=== PATIENT | female | born 1995 | race African-American/Black ===

== ENCOUNTER 2017-12-14 12:56 | Emergency (ER) | payer MEDICAID, SELFPAY ==
--- NOTE | 2017-12-14 14:59 | EDPHYS ---
Physician Documentation [facility] Name: Beth Hernandez Age: 22 yrs Sex: Female : 1995 Arrival Date: 12/14/2017 Time: 12:57 Bed 11 Private MD: ED Physician Libby Powers HPI: 12/14 14:53 This 22 yrs old Black Female presents to ER via Ambulatory with complaints of Sore cp Throat, Drainage From Ear. 14:53 The patient presents with sore throat. The patient describes throat pain as constant. cp Onset: The symptoms/episode began/occurred 3 day(s) ago. Associated signs and symptoms: Pertinent positives: cough, earache, rhinorrhea, Sore throat Pertinent negatives cough, diarrhea, vomiting. 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 - Social history:: Smoking status: Patient/guardian denies using tobacco. ROS: 14:54 Eyes: Negative for injury, pain, redness, and discharge. cp 14:54 Constitutional: Negative for body aches, chills, fever, poor PO intake. 14:54 ENT: Positive for ear pain, rhinorrhea, sore throat. 14:54 Respiratory: Positive for cough, Negative for shortness of breath, wheezing. 14:54 Abdomen/GI: Negative for abdominal pain, vomiting, diarrhea, constipation. 14:54 Skin: Negative for cellulitis, rash. 14:54 Neuro: Negative for altered mental status, headache, weakness. 14:54 All other systems are negative. Exam: 14:56 Head/Face: Normocephalic, atraumatic. cp 14:56 Constitutional: The patient appears in no acute distress, alert, awake, non-toxic, well developed, well nourished. 14:56 Eyes: Periorbital structures: appear normal, Conjunctiva: normal, no exudate, no cp injection, Sclera: no appreciated abnormality, Lids and lashes: appear normal, bilaterally. 14:56 ENT: External ear(s): are unremarkable, Ear canal(s): cerumen impaction, that is cp moderate, occluding the left ear canal, Examination of the other ear shows no obvious abnormality, Nose: is normal, Mouth: Lips: moist, Oral mucosa: pink and intact, moist, Posterior pharynx: Airway: no evidence of obstruction, patent, Tonsils: no enlargement, no exudate, Uvula: midline, swelling, is not appreciated, erythema, that is mild, exudate, is not appreciated, Voice: is normal. 14:56 Neck: ROM/movement: is normal, is supple, without pain, no range of motions cp limitations, no meningismus, no nuchal rigidity, Lymph nodes: no appreciated lymphadenopathy. 14:56 Chest/axilla: Inspection: normal, Palpation: is normal, no crepitus, no tenderness. 14:56 Cardiovascular: Rate: normal, Rhythm: regular. 14:56 Respiratory: the patient does not display signs of respiratory distress, Respirations: normal, no use of accessory muscles, no retractions, no splinting, no tachypnea, labored breathing, is not present, Breath sounds: are clear throughout, no decreased breath sounds, no stridor, no wheezing. 14:56 Abdomen/GI: Exam negative for discomfort, distension, guarding, Inspection: abdomen appears normal. 14:56 Skin: cellulitis, is not appreciated. Vital Signs: 13:06 BP 115 / 67; Pulse 84; Resp 16; Temp 98.5; Pulse Ox 99% on R/A; Weight 81.65 kg; Height ch 5 ft. 6 in. (167.64 cm); Pain 7/10; 15:04 BP 117 / 64; Pulse 86; Resp 19; Pulse Ox 99% on R/A; aj 13:06 Body Mass Index 29.05 (81.65 kg, 167.64 cm) ch MDM: 14:45 Patient medically screened. 14:58 Data reviewed: vital signs, nurses notes, lab test result(s), and as a result, I will cp discharge patient. 12/14 13:07 Order name: Strep; Complete Time: 14:48 12/14 13:31 Order name: Throat Culture EDMS Administered Medications: No medications were administered Disposition: 12/14/17 14:58 Discharged to Home. Impression: Acute pharyngitis, Impacted cerumen, left ear. - Condition is Stable. - Discharge Instructions: Cerumen Impaction, Pharyngitis. - Prescriptions for Amoxicillin 875 mg Oral Tablet - take 1 tablet by ORAL route every 12 hours for 10 days; 20 tablet. - Work release form, Family Work Release, Medication Reconciliation Form, Thank You Letter, Antibiotic Education, Prescription Opioid Use form. - Follow up: Kate Ray MD; When: 1 - 2 days; Reason: Recheck today's complaints. - Problem is new. - Symptoms are unchanged. Addendum: 12/19/2017 19:53 Co-signature as Attending Physician, Libby Powers MD. m a2 Signatures: Dispatcher [employer] EDAngie Boykin RN RN ch Myers, Amanda, RN RN aj Page, Corey, PA PA cp Alzahri, MD NATALIE Souza ma2 Corrections: (The following items were deleted from the chart) 12/14 15:04 14:58 12/14/2017 14:58 Discharged to Home. Impression: Acute pharyngitis; Impacted aj cerumen, left ear. Condition is Stable. Forms are Family Work Release, Work release form, Medication Reconciliation Form, Thank You Letter, Antibiotic Education, Prescription Opioid Use. Follow up: Kate Ray; When: 1 - 2 days; Reason: Recheck today's complaints. Problem is new. Symptoms are unchanged. cp
--- NOTE | 2017-12-14 14:59 | ER ---
Nurse's Notes [facility] Name: Beth Hernandez Age: 22 yrs Sex: Female : 1995 Arrival Date: 12/14/2017 Time: 12:57 Bed 11 Private MD: Diagnosis: Acute pharyngitis;Impacted cerumen, left ear Presentation: 12/14 13:04 Presenting complaint: Patient states: sore throat, ear pain, and yellow runny drainage ch from malka ears for the past 3 days. I am coughing up green stuff too. Transition of care: patient was not received from another setting of care. Onset of symptoms was December 11, 2017. Initial Sepsis Screen: Does the patient meet any 2 criteria? No. Patient's initial sepsis screen is negative. Does the patient have a suspected source of infection? No. Patient's initial sepsis screen is negative. Care prior to arrival: None. 13:04 Method Of Arrival: Ambulatory 13:04 Acuity: MOLLY 4 ch Triage Assessment: 13:06 General: Appears in no apparent distress. comfortable, Behavior is calm, cooperative, ch appropriate for age. Pain: Complains of pain in throat Pain currently is 6 out of 10 on a pain scale. EENT: Reports nasal congestion nasal discharge pain when swallowing. Respiratory: Airway is patent Respiratory effort is even, unlabored. 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 - Social history:: Smoking status: Patient/guardian denies using tobacco. Screenin:57 Abuse screen: Denies threats or abuse. Denies injuries from another. Nutritional aj screening: No deficits noted. Tuberculosis screening: No symptoms or risk factors identified. Fall Risk None identified. Assessment: 14:55 General: Appears in no apparent distress. comfortable, Behavior is calm, cooperative, aj appropriate for age. Neuro: Level of Consciousness is awake, alert, obeys commands, Oriented to person, place, time, situation, Appropriate for age. Respiratory: Airway is patent Respiratory effort is even, unlabored, Respiratory pattern is regular, symmetrical, Breath sounds are clear bilaterally. EENT: Throat is clear Reports pain when swallowing. Derm: Skin is intact, is healthy with good turgor, Skin is pink, warm \T\ dry. normal. Vital Signs: 13:06 BP 115 / 67; Pulse 84; Resp 16; Temp 98.5; Pulse Ox 99% on R/A; Weight 81.65 kg; Height 5 ft. 6 in. (167.64 cm); Pain 7/10; 15:04 BP 117 / 64; Pulse 86; Resp 19; Pulse Ox 99% on R/A; aj 13:06 Body Mass Index 29.05 (81.65 kg, 167.64 cm) ED Course: 12:57 Patient arrived in ED. sb2 13:05 Triage completed. 13:06 Arm band placed on left wrist. 14:45 Binu Contreras PA is PHCP. cp 14:45 Libby Powers MD is Attending Physician. cp 14:55 Jada Olivas, RN is Primary Nurse. aj 14:57 Kate Ray MD is Referral Physician. cp 14:57 Patient has correct armband on for positive identification. aj 14:57 No provider procedures requiring assistance completed. Patient did not have IV access aj during this emergency room visit. Administered Medications: No medications were administered Outcome: 14:58 Discharge ordered by MD. cp 15:03 Discharged to home ambulatory, with family. aj 15:03 Condition: good 15:03 Discharge instructions given to patient, family, Instructed on discharge instructions, follow up and referral plans. medication usage, Demonstrated understanding of instructions, follow-up care, medications, Prescriptions given X 1. 15:04 Patient left the ED. aj Signatures: Angie Solitario, RN RN Jada Olivas RN RN Binu Noel PA PA Namita Mccall sb2
== END 2017-12-14 15:04 | disposition home or self-care (01) ==
LOC: ER 12:56
DX: J02.9 Acute pharyngitis, unspecified (principal); H61.22 Impacted cerumen, left ear
CPT/HCPCS: 87070; 87081; 99282

== ENCOUNTER 2017-12-30 19:28 | Emergency (ER) | payer MEDICAID, SELFPAY ==
[2017-12-30] MEDS ORDERED: IBUPROFEN 400 MG TAB ONE (19:58)
[2017-12-30] MEDS ORDERED: IBUPROFEN 200 MG TAB PO ONE (19:58)
[2017-12-30] MEDS ORDERED: ACETAMINOPHEN 325 MG TABLET ONE (19:58)
--- NOTE | 2017-12-30 21:58 | EDPHYS ---
Physician Documentation [facility] Name: Beth Hernandez Age: 22 yrs Sex: Female : 1995 Arrival Date: 12/30/2017 Time: 19:29 Bed 6 Private MD: ED Physician Binu Craig HPI: 12/30 21:52 This 22 yrs old Black Female presents to ER via Ambulatory with complaints of Fever, aamir Chills, Headache, Ear Pain. 21:52 The patient reports fever, that was measured at 101 degrees Fahrenheit. Onset: The aamir symptoms/episode began/occurred 1 day(s) ago. Modifying factors: there are no obvious modifying factors. Associated signs and symptoms: Pertinent positives: arthralgias, cough. Severity of symptoms: At their worst the symptoms were mild in the emergency department the symptoms are unchanged. The patient has not experienced similar symptoms in the past. 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 - Social history:: Smoking status: Patient/guardian denies using tobacco. ROS: 21:55 Eyes: Negative for injury, pain, redness, and discharge, Neck: Negative for injury, aamir pain, and swelling, Cardiovascular: Negative for chest pain, palpitations, and edema, Abdomen/GI: Negative for abdominal pain, nausea, vomiting, diarrhea, and constipation, Back: Negative for injury and pain, : Negative for injury, bleeding, discharge, and swelling, MS/Extremity: Negative for injury and deformity, Skin: Negative for injury, rash, and discoloration, Neuro: Negative for headache, weakness, numbness, tingling, and seizure, Psych: Negative for depression, anxiety, suicide ideation, homicidal ideation, and hallucinations, Allergy/Immunology: Negative for hives, rash, and allergies, Endocrine: Negative for neck swelling, polydipsia, polyuria, polyphagia, and marked weight changes, Hematologic/Lymphatic: Negative for swollen nodes, abnormal bleeding, and unusual bruising. 21:55 Constitutional: Positive for body aches, fever, malaise. 21:55 ENT: Positive for sore throat. 21:55 Respiratory: Positive for cough. Exam: 21:55 Constitutional: This is a well developed, well nourished patient who is awake, alert, aamir and in no acute distress. Head/Face: Normocephalic, atraumatic. Eyes: Pupils equal round and reactive to light, extra-ocular motions intact. Lids and lashes normal. Conjunctiva and sclera are non-icteric and not injected. Cornea within normal limits. Periorbital areas with no swelling, redness, or edema. ENT: Nares patent. No nasal discharge, no septal abnormalities noted. Tympanic membranes are normal and external auditory canals are clear. Oropharynx with no redness, swelling, or masses, exudates, or evidence of obstruction, uvula midline. Mucous membranes moist. Neck: Trachea midline, no thyromegaly or masses palpated, and no cervical lymphadenopathy. Supple, full range of motion without nuchal rigidity, or vertebral point tenderness. No Meningismus. Chest/axilla: Normal chest wall appearance and motion. Nontender with no deformity. No lesions are appreciated. Cardiovascular: Regular rate and rhythm with a normal S1 and S2. No gallops, murmurs, or rubs. Normal PMI, no JVD. No pulse deficits. Abdomen/GI: Soft, non-tender, with normal bowel sounds. No distension or tympany. No guarding or rebound. No evidence of tenderness throughout. Back: No spinal tenderness. No costovertebral tenderness. Full range of motion. Skin: Warm, dry with normal turgor. Normal color with no rashes, no lesions, and no evidence of cellulitis. MS/ Extremity: Pulses equal, no cyanosis. Neurovascular intact. Full, normal range of motion. Neuro: Awake and alert, GCS 15, oriented to person, place, time, and situation. Cranial nerves II-XII grossly intact. Motor strength 5/5 in all extremities. Sensory grossly intact. Cerebellar exam normal. Normal gait. Psych: Awake, alert, with orientation to person, place and time. Behavior, mood, and affect are within normal limits. 21:55 Respiratory: mild respiratory distress is noted, Respirations: normal, Breath sounds: rhonchi, that are mild, are scattered. Vital Signs: 20:00 BP 114 / 72; Pulse 120; Resp 23; Temp 101.2; Pulse Ox 99% on R/A; Weight 72.57 kg; aj Height 5 ft. 6 in. (167.64 cm); 21:30 BP 96 / 56; Pulse 101; Resp 18; Temp 98.2(O); Pulse Ox 98% on R/A; tl2 22:00 BP 96 / 60; Pulse 91; Resp 18; Pulse Ox 100% on R/A; tl2 20:00 Body Mass Index 25.82 (72.57 kg, 167.64 cm) MDM: 21:33 Patient medically screened. [facility] 21:55 Data reviewed: vital signs, nurses notes, lab test result(s), urinalysis. [facility] 12/30 21:52 Order name: Urine Culture [facility] 12/30 22:19 Order name: Urine Dipstick--Ancillary (enter results) 12/30 22:19 Order name: Urine --Ancillary (enter results) 12/30 21:52 Order name: Urine Dipstick-Ancillary (obtain specimen); Complete Time: 22:22 [facility] 12/30 21:52 Order name: Urine Test (obtain specimen); Complete Time: 22:22 [facility] Administered Medications: 19:59 Drug: Tylenol 650 mg Route: PO; aj 22:11 Follow up: Response: No adverse reaction; Temperature is decreased tl2 19:59 Drug: Motrin 600 mg Route: PO; aj 22:11 Follow up: Response: No adverse reaction; Temperature is decreased tl2 22:22 Drug: Tamiflu 75 mg Route: PO; tl2 22:36 Follow up: Response: No adverse reaction tl2 22:22 Drug: Augmentin 875 mg Route: PO; tl2 22:36 Follow up: Response: No adverse reaction tl2 22:36 Drug: Rocephin (cefTRIAXone) 1 grams Route: IM; Site: right gluteus; tl2 22:37 Follow up: Response: No adverse reaction; Medication administered at discharge. tl2 Disposition: 12/30/17 21:57 Discharged to Home. Impression: Fever, unspecified, Malaise and fatigue, Cough. - Condition is Stable. - Discharge Instructions: Acute Bronchitis, Cool Mist Vaporizers, Acute Bronchitis, [id number], Cough, Adult, [id number], Cough, Adult. - Prescriptions for Augmentin 875- 125 mg Oral Tablet - take 1 tablet by ORAL route every 12 hours for 7 days; 14 tablet. Tamiflu 75 mg Oral Capsule - take 1 tablet by ORAL route every 12 hours for 5 days; 10 tablet. - Medication Reconciliation Form, Thank You Letter, Antibiotic Education, Prescription Opioid Use, Work release form form. - Follow up: Private Physician; When: 2 - 3 days; Reason: Recheck today's complaints, Continuance of care, Re-evaluation by your physician. - Problem is new. - Symptoms have improved. Signatures: Dispatcher [employer] EDJada Clements RN RN Binu Yancey MD MD cha Knox, Taylor, RN RN tl2 Corrections: (The following items were deleted from the chart) 22:37 21:57 12/30/2017 21:57 Discharged to Home. Impression: Fever, unspecified; Malaise and tl2 fatigue; Cough. Condition is Stable. Forms are Medication Reconciliation Form, Thank You Letter, Antibiotic Education, Prescription Opioid Use. Follow up: Private Physician; When: 2 - 3 days; Reason: Recheck today's complaints, Continuance of care, Re-evaluation by your physician. Problem is new. Symptoms have improved. aamir
--- NOTE | 2017-12-30 21:58 | ER ---
Nurse's Notes [facility] Name: Beth Hernandez Age: 22 yrs Sex: Female : 1995 Arrival Date: 12/30/2017 Time: 19:29 Bed 6 Private MD: Diagnosis: Fever, unspecified;Malaise and fatigue;Cough Presentation: 12/30 19:59 Presenting complaint: Patient states: Nasal congestion, chills, headache, bilateral ear aj pain since today at 1200. Patient denies taking any OTC medications for discomfort. Transition of care: patient was not received from another setting of care. Onset of symptoms was December 30, 2017. Care prior to arrival: None. 19:59 Method Of Arrival: Ambulatory 19:59 Acuity: MOLLY 4 aj 21:33 Initial Sepsis Screen: Does the patient meet any 2 criteria? HR > 90 bpm. Does the tl2 patient have a suspected source of infection? No. Patient's initial sepsis screen is negative. Triage Assessment: 20:00 Headache History: The patient has had previous headaches and this one is similar to aj previous episodes. General: Appears in no apparent distress. ill, Behavior is calm, cooperative, appropriate for age. Pain: Complains of pain in face, right ear and left ear. EENT: Reports pain in left ear and right ear. Neuro: Level of Consciousness is awake, alert, obeys commands, Oriented to person, place, time, situation, Appropriate for age Moves all extremities. Gait is steady, Speech is normal, Facial symmetry appears normal, Reports headache. Respiratory: Airway is patent Respiratory effort is even, unlabored, Respiratory pattern is regular, symmetrical. Derm: Skin is intact, is healthy with good turgor, Skin is pink, warm \T\ dry. normal. 20:00 General: Pt states she feels better since arriving to ED. tl2 21:33 Pain: Pain. 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 - Social history:: Smoking status: Patient/guardian denies using tobacco. Screenin:30 Abuse screen: Denies threats or abuse. Nutritional screening: No deficits noted. tl2 Tuberculosis screening: No symptoms or risk factors identified. Fall Risk None identified. Assessment: 21:30 General: Appears in no apparent distress. comfortable, Behavior is calm, cooperative, tl2 appropriate for age. General: Reports chills for fever for. Pain: Complains of pain in left ear and right ear, throat Pain does not radiate. Neuro: Level of Consciousness is awake, alert, obeys commands, Oriented to person, place, time, situation. Cardiovascular: Denies chest pain. Respiratory: Reports cough that is Airway is patent Respiratory effort is even, unlabored, Respiratory pattern is regular, symmetrical. GI: No signs and/or symptoms were reported involving the gastrointestinal system. : No signs and/or symptoms were reported regarding the genitourinary system. Derm: Skin is pink, warm \T\ dry. 22:00 Reassessment: MD reviewed UA, new med ordered, see OCT. tl2 22:33 Reassessment: Patient appears in no apparent distress at this time. Patient and/or tl2 family updated on plan of care and expected duration. Pain level reassessed. Patient is alert, oriented x 3, equal unlabored respirations, skin warm/dry/pink. Pt verbalized understanding of discharge instructions, need for follow up and prescription usage. Vital Signs: 20:00 BP 114 / 72; Pulse 120; Resp 23; Temp 101.2; Pulse Ox 99% on R/A; Weight 72.57 kg; aj Height 5 ft. 6 in. (167.64 cm); 21:30 BP 96 / 56; Pulse 101; Resp 18; Temp 98.2(O); Pulse Ox 98% on R/A; tl2 22:00 BP 96 / 60; Pulse 91; Resp 18; Pulse Ox 100% on R/A; tl2 20:00 Body Mass Index 25.82 (72.57 kg, 167.64 cm) aj ED Course: 19:29 Patient arrived in ED. am2 20:00 Triage completed. aj 20:00 Arm band placed on left wrist. Patient placed in waiting room, Patient notified of wait aj time. Antipyretics given from triage as ordered by an ER provider. 21:24 Srea Hinkle, RN is Primary Nurse. tl2 21:30 Patient has correct armband on for positive identification. Bed in low position. Call tl2 light in reach. Side rails up X 1. Adult w/ patient. 21:32 Binu Craig MD is Attending Physician. [facility] 22:00 No provider procedures requiring assistance completed. Patient did not have IV access tl2 during this emergency room visit. Administered Medications: 19:59 Drug: Tylenol 650 mg Route: PO; aj 22:11 Follow up: Response: No adverse reaction; Temperature is decreased tl2 19:59 Drug: Motrin 600 mg Route: PO; aj 22:11 Follow up: Response: No adverse reaction; Temperature is decreased tl2 22:22 Drug: Tamiflu 75 mg Route: PO; tl2 22:36 Follow up: Response: No adverse reaction tl2 22:22 Drug: Augmentin 875 mg Route: PO; tl2 22:36 Follow up: Response: No adverse reaction tl2 22:36 Drug: Rocephin (cefTRIAXone) 1 grams Route: IM; Site: right gluteus; tl2 22:37 Follow up: Response: No adverse reaction; Medication administered at discharge. tl2 Outcome: 21:57 Discharge ordered by . [facility] 22:00 Discharged to home ambulatory, with family. tl2 22:00 Condition: stable 22:00 Discharge instructions given to patient, family, Instructed on discharge instructions, follow up and referral plans. medication usage, Demonstrated understanding of instructions, follow-up care, medications, Prescriptions given X 2. 22:37 Patient left the ED. tl2 Signatures: Jada Olivas RN RN aj Anderson, Corey, MD MD cha Knox, Taylor, RN RN 2 Jada Shah
[2017-12-30] MEDS ORDERED: AMOX/K CLAV 875 MG TAB ONE (22:11)
[2017-12-30] MEDS ORDERED: OSELTAMIVIR 75 MG CAP ONE (22:11)
[2017-12-30] MEDS ORDERED: LIDOCAINE 1% 20 ML MDV ONE (22:28)
[2017-12-30] MEDS ORDERED: CEFTRIAXONE 1000 MG/VIAL ONE (22:28)
[2017-12-30 23:23] LABS: Urine Blood 3+ (NEG); Urine Glucose NEGATIVE (NEG); Urine Protein 2+ (NEG); Urine Specific Gravity 1.015 (1.005-1.030)
== END 2017-12-30 22:37 | disposition home or self-care (01) ==
LOC: ER 19:28
DX: R05 Cough (principal); R53.81 Other malaise; R53.83 Other fatigue; Z88.1 Allergy status to other antibiotic agents; Z88.5 Allergy status to narcotic agent; Z91.048 Other nonmedicinal substance allergy status
CPT/HCPCS: 81003; 81025; 87086; 87088; 96372; 99283

== ENCOUNTER 2018-02-17 17:27 | Emergency (ER) | payer OTHER, SELFPAY ==
[2018-02-17 18:58] LABS: Absolute Lymphocytes (CBC) 2.7 K/uL (0.7-4.9); Absolute Monocytes 0.6 K/uL (0.1-1.3); Basophils % 0.5 % (0-1.3); Eosinophils % 5.8 % (0-4.4); Hematocrit 33.3 % (36.0-45.0); Lymphocytes % 34.5 % (15.3-44.8); MCV 74.3 fL (80-100); MPV 8.5 fL (7.6-11.3); Monocytes % 7.4 % (3.3-12.3); RBC Red Blood Cell Count 4.48 M/uL (3.86-4.86)
[2018-02-17 19:14] LABS: BUN Blood Urea Nitrogen 7 mg/dL (7-18); Bicarbonate 26 mmol/L (21-32); Glucose Level 94 mg/dL (74-106); Potassium 3.8 mmol/L (3.5-5.1); Sodium Level 139 mmol/L (136-145)
[2018-02-17 19:16] LABS: HCG, Quantitative < 1 mIU/mL (1-3)
[2018-02-17 19:32] LABS: Urine Blood 2+ (NEG); Urine Glucose NEGATIVE (NEG); Urine Protein TRACE (NEG); Urine Specific Gravity 1.025 (1.005-1.030)
--- NOTE | 2018-02-17 19:32 | EDPHYS ---
Physician Documentation [facility] Name: Beth Hernandez Age: 23 yrs Sex: Female : 1995 Arrival Date: 02/17/2018 Time: 17:31 Bed 20 Private MD: Unknown, Unknown ED Physician Akhil Ayala HPI: 02/17 18:34 This 23 yrs old Black Female presents to ER via Ambulatory with complaints of Vaginal jr8 Bleeding, + Preg <12wks. 18:34 The patient presents to the emergency department with vaginal bleeding, that is light. jr8 The estimated gestational age is 7 weeks. course: care: private OB physician. Associated signs and symptoms: The patient has no apparent associated signs or symptoms. The patient has experienced a previous episode. The patient has not recently seen a physician. Stated that she had vaginal bleeding and cramping that started today. History of miscarry in past . 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 - Social history:: Smoking status: Patient/guardian denies using tobacco. - Ebola Screening: : Patient negative for fever greater than or equal to 101.5 degrees Fahrenheit, and additional compatible Ebola Virus Disease symptoms Patient denies exposure to infectious person Patient denies travel to an Ebola-affected area in the 21 days before illness onset No symptoms or risks identified at this time. ROS: 18:34 Eyes: Negative for injury, pain, redness, and discharge, ENT: Negative for injury, jr8 pain, and discharge, Neck: Negative for injury, pain, and swelling, Cardiovascular: Negative for chest pain, palpitations, and edema, Respiratory: Negative for shortness of breath, cough, wheezing, and pleuritic chest pain, Abdomen/GI: Negative for abdominal pain, nausea, vomiting, diarrhea, and constipation, Back: Negative for injury and pain, MS/Extremity: Negative for injury and deformity, Skin: Negative for injury, rash, and discoloration, Neuro: Negative for headache, weakness, numbness, tingling, and seizure. 18:34 : Positive for vaginal bleeding. Exam: 18:34 Cardiovascular: Regular rate and rhythm with a normal S1 and S2. No gallops, murmurs, jr8 or rubs. Normal PMI, no JVD. No pulse deficits. Respiratory: Lungs have equal breath sounds bilaterally, clear to auscultation and percussion. No rales, rhonchi or wheezes noted. No increased work of breathing, no retractions or nasal flaring. Abdomen/GI: Soft, non-tender, with normal bowel sounds. No distension or tympany. No guarding or rebound. No evidence of tenderness throughout. Back: No spinal tenderness. No costovertebral tenderness. Full range of motion. Skin: Warm, dry with normal turgor. Normal color with no rashes, no lesions, and no evidence of cellulitis. MS/ Extremity: Pulses equal, no cyanosis. Neurovascular intact. Full, normal range of motion. Neuro: Awake and alert, GCS 15, oriented to person, place, time, and situation. Cranial nerves II-XII grossly intact. Motor strength 5/5 in all extremities. Sensory grossly intact. Cerebellar exam normal. Normal gait. Vital Signs: 17:33 BP 115 / 69; Pulse 81; Resp 19; Temp 98.2; Pulse Ox 100% ; Weight 72.57 kg; Height 5 sg ft. 6 in. (167.64 cm); Pain 5/10; 19:32 BP 112 / 71; Pulse 84; Resp 16; Temp 98.2; Pulse Ox 100% ; Pain 2/10; tl1 17:33 Body Mass Index 25.82 (72.57 kg, 167.64 cm) sg MDM: 17:56 Patient medically screened. jr8 19:21 Data reviewed: vital signs, nurses notes, lab test result(s), and as a result, I will jr8 discharge patient. Data interpreted: Pulse oximetry: on room air is 100 %. Interpretation: normal. Counseling: I had a detailed discussion with the patient and/or guardian regarding: the historical points, exam findings, and any diagnostic results supporting the discharge/admit diagnosis, lab results, the need for outpatient follow up, a family practitioner, to return to the emergency department if symptoms worsen or persist or if there are any questions or concerns that arise at home. 19:28 ED course: Negative HCG and urine. Explained to patient that she is just having regular [facility] menstrual cycle. The home test that she had was probably false positive. Patient is happy about this and ready to go home . 02/17 18:10 Order name: Quantitative Hcg; Complete Time: 19:21 [facility] 02/17 18:10 Order name: Abo/rh Typing [facility] 02/17 18:10 Order name: Basic Metabolic Panel; Complete Time: 19:21 [facility] 02/17 18:10 Order name: CBC with Diff; Complete Time: 19:11 [facility] 02/17 19:00 Order name: Urine Dipstick--Ancillary (enter results); Complete Time: 19:34 02/17 19:00 Order name: Urine --Ancillary (enter results); Complete Time: 19:34 02/17 18:10 Order name: Urine Test (obtain specimen); Complete Time: 18:55 [facility] 02/17 18:10 Order name: IV Saline Lock; Complete Time: 18:55 [facility] 02/17 18:10 Order name: Labs collected and sent; Complete Time: 18:55 [facility] 02/17 18:10 Order name: NPO; Complete Time: 18:34 [facility] 02/17 18:10 Order name: Urine Dipstick-Ancillary (obtain specimen); Complete Time: 18:55 Administered Medications: No medications were administered Point of Care Testing: Urine : 19:32 hCG Reading: Negative; tl1 Disposition: 02/18 07:10 Co-signature as Attending Physician, Akhil Ayala MD. rn Disposition: 02/17/18 19:30 Discharged to Home. Impression: Dysmenorrhea, unspecified. - Condition is Stable. - Discharge Instructions: Dysmenorrhea. - Medication Reconciliation Form, Thank You Letter, Antibiotic Education, Prescription Opioid Use form. - Follow up: Private Physician; When: As needed; Reason: Recheck today's complaints, Continuance of care, Re-evaluation by your physician. - Problem is new. - Symptoms have improved. Signatures: Dispatcher [employer] EDMS Matthew Sandoval RN RN Akhil Ayala MD MD rn Roszak, Josh, PA PA 8 Lasagna, Katarzyna, RN RN tl1 Corrections: (The following items were deleted from the chart) 02/17 19:35 19:30 02/17/2018 19:30 Discharged to Home. Impression: Dysmenorrhea, unspecified. tl1 Condition is Stable. Forms are Medication Reconciliation Form, Thank You Letter, Antibiotic Education, Prescription Opioid Use. Follow up: Private Physician; When: As needed; Reason: Recheck today's complaints, Continuance of care, Re-evaluation by your physician. Problem is new. Symptoms have improved. jr8
--- NOTE | 2018-02-17 19:32 | ER ---
Nurse's Notes [facility] Name: Beth Hernandez Age: 23 yrs Sex: Female : 1995 Arrival Date: 02/17/2018 Time: 17:31 Bed 20 Private MD: Unknown, Unknown Diagnosis: Dysmenorrhea, unspecified Presentation: 02/17 17:34 Presenting complaint: Patient states: BLQ abd pain and vaginal bleeding, pt reports sg positive x2 started bleeding today. Transition of care: patient was not received from another setting of care. Onset of symptoms was February 17, 2018. Risk Assessment: Do you want to hurt yourself or someone else? Patient reports no desire to harm self or others. Initial Sepsis Screen: Does the patient meet any 2 criteria? No. Patient's initial sepsis screen is negative. Does the patient have a suspected source of infection? No. Patient's initial sepsis screen is negative. Care prior to arrival: None. 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 - Social history:: Smoking status: Patient/guardian denies using tobacco. - Ebola Screening: : Patient negative for fever greater than or equal to 101.5 degrees Fahrenheit, and additional compatible Ebola Virus Disease symptoms Patient denies exposure to infectious person Patient denies travel to an Ebola-affected area in the 21 days before illness onset No symptoms or risks identified at this time. Screenin:41 Abuse screen: Denies threats or abuse. Denies injuries from another. Nutritional aj1 screening: No deficits noted. Tuberculosis screening: No symptoms or risk factors identified. 19:31 Fall Risk tl1 Assessment: 17:41 Obstetrical Assessment: Patient reports vaginal bleeding. General: Appears in no aj1 apparent distress. comfortable, Behavior is calm, cooperative, appropriate for age. Pain: Complains of pain in low back area, right lower quadrant and left lower quadrant Pain currently is 5 out of 10 on a pain scale. Quality of pain is described as sharp, Pain began 1 day ago. Is intermittent. Neuro: Level of Consciousness is awake, alert, obeys commands, Oriented to person, place, time, situation, Speech is normal, Facial symmetry appears normal. Cardiovascular: Patient's skin is warm and dry. Respiratory: Airway is patent Respiratory effort is even, unlabored, Respiratory pattern is regular, symmetrical. GI: No signs and/or symptoms were reported involving the gastrointestinal system. : Reports vaginal bleeding that is moderate flow. EENT: No signs and/or symptoms were reported regarding the EENT system. Derm: No signs and/or symptoms reported regarding the dermatologic system. Skin is normal. Musculoskeletal: No signs and/or symptoms reported regarding the musculoskeletal system. Circulation, motion, and sensation intact. 18:55 Reassessment: Patient appears in no apparent distress at this time. No changes from aj1 previously documented assessment. Patient and/or family updated on plan of care and expected duration. Pain level reassessed. Patient is alert, oriented x 3, equal unlabored respirations, skin warm/dry/pink. 19:30 Reassessment: Patient is alert, oriented x 3, equal unlabored respirations, skin tl1 warm/dry/pink. Patient states feeling better. Vital Signs: 17:33 BP 115 / 69; Pulse 81; Resp 19; Temp 98.2; Pulse Ox 100% ; Weight 72.57 kg; Height 5 sg ft. 6 in. (167.64 cm); Pain 5/10; 19:32 BP 112 / 71; Pulse 84; Resp 16; Temp 98.2; Pulse Ox 100% ; Pain 2/10; tl1 17:33 Body Mass Index 25.82 (72.57 kg, 167.64 cm) sg Vitals: 19:31 Heart Tones not applicable. tl1 ED Course: 17:31 Patient arrived in ED. sg 17:33 Unknown, Unknown is Private Physician. sg 17:33 Arm band placed on. sg 17:35 Triage completed. sg 17:41 Shannon Watson, RN is Primary Nurse. aj1 17:41 Patient has correct armband on for positive identification. Bed in low position. Call aj1 light in reach. Side rails up X 1. 17:41 No provider procedures requiring assistance completed. aj1 17:56 Manuel Noland PA is PHCP. jr8 17:56 Akhil Ayala MD is Attending Physician. jr8 18:55 Initial lab(s) drawn, by me, sent to lab. Inserted saline lock: 20 gauge in right aj1 antecubital area, using aseptic technique. Blood collected. 19:30 IV discontinued, intact, bleeding controlled, No redness/swelling at site. Pressure tl1 dressing applied. Administered Medications: No medications were administered Point of Care Testing: Urine : 19:32 hCG Reading: Negative; tl1 Outcome: 19:30 Discharge ordered by . jr8 19:31 Discharged to home ambulatory, with family. tl1 19:31 Condition: good 19:31 Discharge instructions given to patient, family, Instructed on discharge instructions, follow up and referral plans. Demonstrated understanding of instructions, follow-up care. 19:35 Patient left the ED. tl1 Signatures: Shannon Watson RN RN aj1 Matthew Sandoval RN RN Manuel Noland PA PA jr8 Katarzyna Riojas RN RN tl1
== END 2018-02-17 19:35 | disposition home or self-care (01) ==
LOC: ER 17:27
DX: N94.6 Dysmenorrhea, unspecified (principal); Z88.6 Allergy status to analgesic agent; Z88.8 Allergy status to other drugs, medicaments and biological substances
CPT/HCPCS: 36415; 80048; 81003; 81025; 84702; 85025; 86900; 86901; 99284

== ENCOUNTER 2018-06-30 12:40 | Emergency (ER) | payer MEDICAID, OTHER ==
--- NOTE | 2018-06-30 14:22 | EDPHYS ---
Physician Documentation [facility] Name: Beth Hernandez Age: 23 yrs Sex: Female : 1995 Arrival Date: 06/30/2018 Time: 12:45 Bed 25 Private MD: ED Physician Akhil Ayala HPI: 06/30 13:31 This 23 yrs old Black Female presents to ER via Ambulatory with complaints of Flu kav Symptoms. 13:31 Onset: The symptoms/episode began/occurred acutely. Associated signs and symptoms: kav Pertinent positives: myalgias, runny nose. Modifying factors: The patient symptoms are alleviated by nothing, the patient symptoms are aggravated by nothing. The patient has not experienced similar symptoms in the past. The patient has not recently seen a physician. . 13:35 The patient reports fever, with an emergency department temperature of 98.8 degrees kav Fahrenheit. Modifying factors: unaware of sick contact. Associated signs and symptoms: Pertinent positives: chills, myalgias, runny nose. Severity of symptoms: At their worst the symptoms were moderate just prior to arrival. 13:36 Patient is 15 weeks . 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 - Social history:: Smoking status: Patient/guardian denies using tobacco. - Ebola Screening: : Patient negative for fever greater than or equal to 101.5 degrees Fahrenheit, and additional compatible Ebola Virus Disease symptoms Patient denies exposure to infectious person Patient denies travel to an Ebola-affected area in the 21 days before illness onset No symptoms or risks identified at this time. - Family history:: not pertinent. - Hospitalizations: : No recent hospitalization is reported. ROS: 13:38 Eyes: Negative for injury, pain, redness, and discharge, ENT: Negative for injury, kav pain, and discharge, Neck: Negative for injury, pain, and swelling, Cardiovascular: Negative for chest pain, palpitations, and edema, Respiratory: Negative for shortness of breath, cough, wheezing, and pleuritic chest pain, Abdomen/GI: Negative for abdominal pain, nausea, vomiting, diarrhea, and constipation, Back: Negative for injury and pain, : Negative for injury, bleeding, discharge, and swelling, MS/Extremity: Negative for injury and deformity, Skin: Negative for injury, rash, and discoloration, Neuro: Negative for headache, weakness, numbness, tingling, and seizure, Psych: Negative for depression, anxiety, suicide ideation, homicidal ideation, and hallucinations, Allergy/Immunology: Negative for hives, rash, and allergies, Endocrine: Negative for neck swelling, polydipsia, polyuria, polyphagia, and marked weight changes, Hematologic/Lymphatic: Negative for swollen nodes, abnormal bleeding, and unusual bruising. 13:38 Constitutional: Positive for body aches, chills, fever, Negative for poor PO intake, weight loss. Exam: 13:38 Head/Face: Normocephalic, atraumatic. Eyes: Pupils equal round and reactive to light, kav extra-ocular motions intact. Lids and lashes normal. Conjunctiva and sclera are non-icteric and not injected. Cornea within normal limits. Periorbital areas with no swelling, redness, or edema. ENT: Nares patent. No nasal discharge, no septal abnormalities noted. Tympanic membranes are normal and external auditory canals are clear. Oropharynx with no redness, swelling, or masses, exudates, or evidence of obstruction, uvula midline. Mucous membranes moist. Neck: Trachea midline, no thyromegaly or masses palpated, and no cervical lymphadenopathy. Supple, full range of motion without nuchal rigidity, or vertebral point tenderness. No Meningismus. Chest/axilla: Normal chest wall appearance and motion. Nontender with no deformity. No lesions are appreciated. Cardiovascular: Regular rate and rhythm with a normal S1 and S2. No gallops, murmurs, or rubs. Normal PMI, no JVD. No pulse deficits. Respiratory: Lungs have equal breath sounds bilaterally, clear to auscultation and percussion. No rales, rhonchi or wheezes noted. No increased work of breathing, no retractions or nasal flaring. Abdomen/GI: Soft, non-tender, with normal bowel sounds. No distension or tympany. No guarding or rebound. No evidence of tenderness throughout. Back: No spinal tenderness. No costovertebral tenderness. Full range of motion. Skin: Warm, dry with normal turgor. Normal color with no rashes, no lesions, and no evidence of cellulitis. MS/ Extremity: Pulses equal, no cyanosis. Neurovascular intact. Full, normal range of motion. Neuro: Awake and alert, GCS 15, oriented to person, place, time, and situation. Cranial nerves II-XII grossly intact. Motor strength 5/5 in all extremities. Sensory grossly intact. Cerebellar exam normal. Normal gait. Psych: Awake, alert, with orientation to person, place and time. Behavior, mood, and affect are within normal limits. 13:38 Constitutional: The patient appears in no acute distress, alert, awake, in obvious distress, obviously ill, uncomfortable. Vital Signs: 12:54 BP 112 / 66; Pulse 107; Resp 20; Temp 98.8; Pulse Ox 100% on R/A; Weight 76.66 kg; aj Height 5 ft. 6 in. (167.64 cm); 13:34 BP 126 / 58; Pulse 106; Resp 18; Temp 99.4(O); Pulse Ox 100% ; tl3 14:54 BP 137 / 69; Pulse 105; Resp 18; Pulse Ox 97% on R/A; tl3 12:54 Body Mass Index 27.28 (76.66 kg, 167.64 cm) aj MDM: 13:11 Medical screening is not applicable. ka 13:38 Differential diagnosis: viral Infection, influnza. Data reviewed: vital signs, nurses kav notes. 14:19 Data reviewed: lab test result(s), Flu: negative. ka 14:19 ED course: reviewed lab results with patient -negative influenza test. patient requests ka to be treated for influenza owing to surrounded by sick contacts with influenza. advised patient that Oseltamivir may be used safely during . 06/30 13:14 Order name: Influenza Screen (a \T\ B); Complete Time: 14:14 kav Administered Medications: 14:57 Drug: Tylenol 1000 mg Route: PO; tl3 14:57 Follow up: Response: Medication administered at discharge. tl3 Disposition: 17:25 Co-signature as Attending Physician, Akhil Ayala MD. rn Disposition: 06/30/18 14:22 Discharged to Home. Impression: Influenza due to other identified influenza virus. - Condition is Stable. - Discharge Instructions: Influenza, Adult, [id number]. - Prescriptions for Tamiflu 75 mg Oral Capsule - take 1 tablet by ORAL route every 12 hours for 5 days; 5 tablet. - Medication Reconciliation Form, Thank You Letter form. - Follow up: Private Physician; When: 2 - 3 days; Reason: Recheck today's complaints, Continuance of care, Re-evaluation by your physician. - Problem is new. - Symptoms are unchanged. Signatures: Dispatcher [employer] EDJada Clements RN Yarelis Gomez, INTEGRATED LOGISTICS PROGRAMS DIRECTOR INTEGRATED LOGISTICS PROGRAMS DIRECTOR Akhil Salas MD MD rn Lowrey, Tammy, RN RN tl3 Corrections: (The following items were deleted from the chart) 14:57 14:22 06/30/2018 14:22 Discharged to Home. Impression: Influenza due to other tl3 identified influenza virus. Condition is Stable. Forms are Medication Reconciliation Form, Thank You Letter, Antibiotic Education, Prescription Opioid Use. Follow up: Private Physician; When: 2 - 3 days; Reason: Recheck today's complaints, Continuance of care, Re-evaluation by your physician. Problem is new. Symptoms are unchanged. tim
--- NOTE | 2018-06-30 14:22 | ER ---
Nurse's Notes [facility] Name: Beth Hernandez Age: 23 yrs Sex: Female : 1995 Arrival Date: 06/30/2018 Time: 12:45 Bed 25 Private MD: Diagnosis: Influenza due to other identified influenza virus Presentation: 06/30 12:53 Presenting complaint: Patient states: Flu like symptoms since last night, 15 weeks aj . Transition of care: patient was not received from another setting of care. Onset of symptoms was June 29, 2018. Risk Assessment: Do you want to hurt yourself or someone else? Patient reports no desire to harm self or others. Initial Sepsis Screen: Does the patient meet any 2 criteria? No. Patient's initial sepsis screen is negative. Does the patient have a suspected source of infection? No. Patient's initial sepsis screen is negative. Care prior to arrival: None. 12:53 Method Of Arrival: Ambulatory 12:53 Acuity: MOLLY 4 aj Triage Assessment: 12:53 General: Appears in no apparent distress. comfortable, Behavior is calm, cooperative, aj appropriate for age. Pain: Denies pain. EENT: Reports nasal congestion nasal discharge. Neuro: Level of Consciousness is awake, alert, obeys commands, Oriented to person, place, time, situation, Appropriate for age. Respiratory: Airway is patent Respiratory effort is even, unlabored, Respiratory pattern is regular, symmetrical. Derm: Skin is intact, is healthy with good turgor, Skin is pink, warm \T\ dry. normal. 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 - Social history:: Smoking status: Patient/guardian denies using tobacco. - Ebola Screening: : Patient negative for fever greater than or equal to 101.5 degrees Fahrenheit, and additional compatible Ebola Virus Disease symptoms Patient denies exposure to infectious person Patient denies travel to an Ebola-affected area in the 21 days before illness onset No symptoms or risks identified at this time. - Family history:: not pertinent. - Hospitalizations: : No recent hospitalization is reported. Screenin:34 Abuse screen: Denies threats or abuse. Nutritional screening: No deficits noted. tl3 Tuberculosis screening: No symptoms or risk factors identified. Fall Risk None identified. Assessment: 13:34 Reassessment: pt reports flu like s/s started yesterday, low grade temp, body aches, tl3 runny nose and cough. General: Appears ill, slender, well groomed, well developed, well nourished, Behavior is calm, cooperative, appropriate for age. Pain: Complains of pain in generalized body aches. Neuro: Level of Consciousness is awake, alert, obeys commands, Oriented to person, place, time, situation, Appropriate for age. Cardiovascular: Patient's skin is warm and dry. Respiratory: Airway is patent Respiratory effort is even, unlabored, Respiratory pattern is regular, symmetrical, Breath sounds are coarse bilaterally. GI: No signs and/or symptoms were reported involving the gastrointestinal system. : No signs and/or symptoms were reported regarding the genitourinary system. EENT: Nares are clear with drainage noted. Derm: No signs and/or symptoms reported regarding the dermatologic system. 14:54 Reassessment: Patient appears in no apparent distress at this time. No changes from tl3 previously documented assessment. Patient and/or family updated on plan of care and expected duration. Pain level reassessed. Patient is alert, oriented x 3, equal unlabored respirations, skin warm/dry/pink. Vital Signs: 12:54 BP 112 / 66; Pulse 107; Resp 20; Temp 98.8; Pulse Ox 100% on R/A; Weight 76.66 kg; aj Height 5 ft. 6 in. (167.64 cm); 13:34 BP 126 / 58; Pulse 106; Resp 18; Temp 99.4(O); Pulse Ox 100% ; tl3 14:54 BP 137 / 69; Pulse 105; Resp 18; Pulse Ox 97% on R/A; tl3 12:54 Body Mass Index 27.28 (76.66 kg, 167.64 cm) aj ED Course: 12:45 Patient arrived in ED. mr 12:53 Triage completed. aj 12:54 Arm band placed on left wrist. Patient placed in waiting room, Patient notified of wait aj time. 13:01 Sigrid Hale, RN is Primary Nurse. tl3 13:11 [facility] tim 13:11 Akhil Ayala MD is Attending Physician. ka 13:34 Patient has correct armband on for positive identification. Bed in low position. Call tl3 light in reach. Side rails up X 1. Pulse ox on. NIBP on. 13:34 No provider procedures requiring assistance completed. Patient did not have IV access tl3 during this emergency room visit. Administered Medications: 14:57 Drug: Tylenol 1000 mg Route: PO; tl3 14:57 Follow up: Response: Medication administered at discharge. tl3 Outcome: 14:22 Discharge ordered by . kav 14:54 Discharged to home ambulatory. tl3 14:54 Condition: stable 14:54 Discharge instructions given to patient, Instructed on discharge instructions, follow up and referral plans. medication usage, stressed fluid intake, good handwashing and staying away from other people until fever free for 24 hours 14:57 Patient left the ED. tl3 Signatures: Jada Olivas RN RN Yarelis Garcia FNP FNP kav Heather Parra mr Sigrid Hale, RN RN tl3 Corrections: (The following items were deleted from the chart) 12:54 12:53 Presenting complaint: Patient states: Flu like symptoms since last night aj aj
[2018-06-30] MEDS ORDERED: ACETAMINOPHEN 500 MG TAB ONE (14:54)
== END 2018-06-30 14:57 | disposition home or self-care (01) ==
LOC: ER 12:40
DX: J10.1 Influenza due to other identified influenza virus with other respiratory manifestations (principal); Z3A.15 15 weeks gestation of pregnancy; Z88.1 Allergy status to other antibiotic agents; Z88.5 Allergy status to narcotic agent; Z91.048 Other nonmedicinal substance allergy status
CPT/HCPCS: 87804; 99283

== ENCOUNTER 2018-10-23 19:24 | Emergency (ER) | payer MEDICAID ==
--- NOTE | 2018-10-23 21:00 | EDPHYS ---
Physician Documentation [facility] Name: Beth Hernandez Age: 23 yrs Sex: Female : 1995 Arrival Date: 10/23/2018 Time: 19:24 Bed 10 Private MD: ED Physician Arik Burgess HPI: 10/23 20:57 This 23 yrs old Black Female presents to ER via Ambulatory with complaints of Flu jr8 Symptoms. 20:58 Flu symptoms that were sudden onset since this past Wednesday . Severity of symptoms: At jr8 their worst the symptoms were mild in the emergency department the symptoms are unchanged. The patient has not experienced similar symptoms in the past. The patient has not recently seen a physician. 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 - Social history:: Smoking status: Patient/guardian denies using tobacco. - Ebola Screening: : No symptoms or risks identified at this time. ROS: 20:58 Neck: Negative for injury, pain, and swelling, Cardiovascular: Negative for chest pain, jr8 palpitations, and edema, Abdomen/GI: Negative for abdominal pain, nausea, vomiting, diarrhea, and constipation, Back: Negative for injury and pain, MS/Extremity: Negative for injury and deformity, Skin: Negative for injury, rash, and discoloration, Neuro: Negative for headache, weakness, numbness, tingling, and seizure. 20:58 Constitutional: Positive for body aches, chills. 20:58 ENT: Positive for rhinorrhea, sinus congestion, sore throat. 20:58 Respiratory: Positive for cough, Negative for dyspnea on exertion, shortness of breath, sputum production, wheezing. Exam: 20:58 Eyes: Pupils equal round and reactive to light, extra-ocular motions intact. Lids and jr8 lashes normal. Conjunctiva and sclera are non-icteric and not injected. Cornea within normal limits. Periorbital areas with no swelling, redness, or edema. ENT: Nares patent. No nasal discharge, no septal abnormalities noted. Tympanic membranes are normal and external auditory canals are clear. Oropharynx with no redness, swelling, or masses, exudates, or evidence of obstruction, uvula midline. Mucous membranes moist. Neck: Trachea midline, no thyromegaly or masses palpated, and no cervical lymphadenopathy. Supple, full range of motion without nuchal rigidity, or vertebral point tenderness. No Meningismus. Cardiovascular: Regular rate and rhythm with a normal S1 and S2. No gallops, murmurs, or rubs. Normal PMI, no JVD. No pulse deficits. Respiratory: Lungs have equal breath sounds bilaterally, clear to auscultation and percussion. No rales, rhonchi or wheezes noted. No increased work of breathing, no retractions or nasal flaring. Abdomen/GI: Soft, non-tender, with normal bowel sounds. No distension or tympany. No guarding or rebound. No evidence of tenderness throughout. Back: No spinal tenderness. No costovertebral tenderness. Full range of motion. Skin: Warm, dry with normal turgor. Normal color with no rashes, no lesions, and no evidence of cellulitis. MS/ Extremity: Pulses equal, no cyanosis. Neurovascular intact. Full, normal range of motion. Neuro: Awake and alert, GCS 15, oriented to person, place, time, and situation. Cranial nerves II-XII grossly intact. Motor strength 5/5 in all extremities. Sensory grossly intact. Cerebellar exam normal. Normal gait. Vital Signs: 19:47 BP 100 / 61; Pulse 129; Resp 20; Temp 98.2(TE); Pulse Ox 100% on R/A; Weight 78.02 kg ak1 (R); Height 5 ft. 6 in. (167.64 cm) (R); Pain 2/10; 21:14 Pulse 122; Resp 18; Temp 100.5(O); Pulse Ox 99% ; tl2 19:47 Body Mass Index 27.76 (78.02 kg, 167.64 cm) ak1 MDM: 20:29 Patient medically screened. jr8 20:58 Data reviewed: vital signs, nurses notes, lab test result(s), Flu: negative and as a jr8 result, I will discharge patient. Data interpreted: Pulse oximetry: on room air is 100 %. Interpretation: normal. Counseling: I had a detailed discussion with the patient and/or guardian regarding: the historical points, exam findings, and any diagnostic results supporting the discharge/admit diagnosis, lab results, the need for outpatient follow up, a family practitioner, to return to the emergency department if symptoms worsen or persist or if there are any questions or concerns that arise at home. 10/23 19:49 Order name: Flu; Complete Time: 20:29 [facility] 10/23 19:49 Order name: Strep; Complete Time: 20:29 ak 10/23 20:30 Order name: Throat Culture EDMS Administered Medications: 21:14 Drug: Tylenol 1000 mg Route: PO; tl2 21:16 Follow up: Response: No adverse reaction; Medication administered at discharge. tl2 21:14 Drug: Tamiflu 75 mg Route: PO; tl2 21:16 Follow up: Response: No adverse reaction; Medication administered at discharge. tl2 Disposition: 10/24 06:07 Co-signature as Attending Physician, Arik Burgess MD I agree with the assessment and tw4 plan of care. Disposition: 10/23/18 20:59 Discharged to Home. Impression: Viral infection, unspecified. - Condition is Stable. - Discharge Instructions: Viral Respiratory Infection. - Prescriptions for Tamiflu 75 mg Oral Capsule - take 1 capsule by ORAL route every 12 hours for 5 days; 10 capsule. - Medication Reconciliation Form, Thank You Letter, Antibiotic Education, Prescription Opioid Use form. - Follow up: Private Physician; When: 2 - 3 days; Reason: Recheck today's complaints, Continuance of care, Re-evaluation by your physician. - Problem is new. - Symptoms have improved. Signatures: Dispatcher [employer] EDMS Manuel Noland PA PA jr8 Chelsea Hahn RN RN ak1 Sera Hinkle RN RN tl2 Arik Burgess MD MD tw4 Corrections: (The following items were deleted from the chart) 10/23 21:17 20:59 10/23/2018 20:59 Discharged to Home. Impression: Viral infection, unspecified. tl2 Condition is Stable. Forms are Medication Reconciliation Form, Thank You Letter, Antibiotic Education, Prescription Opioid Use. Follow up: Private Physician; When: 2 - 3 days; Reason: Recheck today's complaints, Continuance of care, Re-evaluation by your physician. Problem is new. Symptoms have improved. jr8
--- NOTE | 2018-10-23 21:00 | ER ---
Nurse's Notes [facility] Name: Beth Hernandez Age: 23 yrs Sex: Female : 1995 Arrival Date: 10/23/2018 Time: 19:24 Bed 10 Private MD: Diagnosis: Viral infection, unspecified Presentation: 10/23 19:47 Presenting complaint: Patient states: COUGH, CONGESTION, FEVER, THROAT PAIN SINCE ak1 WEDNESDAY. 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 Transition of care: patient was not received from another setting of care. Onset of symptoms was October 21, 2018. Care prior to arrival: None. 19:47 Method Of Arrival: Ambulatory ak1 19:47 Acuity: MOLLY 4 ak1 21:16 Risk Assessment: Do you want to hurt yourself or someone else? Patient reports no tl2 desire to harm self or others. Initial Sepsis Screen: Does the patient meet any 2 criteria? HR > 90 bpm. Does the patient have a suspected source of infection? No. Patient's initial sepsis screen is negative. Triage Assessment: 19:47 General: Appears in no apparent distress. Behavior is calm, cooperative. 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 - Social history:: Smoking status: Patient/guardian denies using tobacco. - Ebola Screening: : No symptoms or risks identified at this time. Screenin:48 Abuse screen: Denies threats or abuse. Nutritional screening: No deficits noted. bb Tuberculosis screening: No symptoms or risk factors identified. Fall Risk None identified. Assessment: 20:45 General: Appears in no apparent distress. Behavior is calm, cooperative. bb 20:48 Pain: Denies pain. Neuro: Level of Consciousness is awake, alert, obeys commands, bb Oriented to person, place, time, situation. Cardiovascular: No deficits noted. Respiratory: Respiratory effort is even, unlabored, Respiratory pattern is regular. GI: No signs and/or symptoms were reported involving the gastrointestinal system. : Reports she is . Derm: Skin is pink, warm \T\ dry. Musculoskeletal: Circulation, motion, and sensation intact. 21:12 Reassessment: Patient appears in no apparent distress at this time. Patient and/or tl2 family updated on plan of care and expected duration. Pain level reassessed. Patient is alert, oriented x 3, equal unlabored respirations, skin warm/dry/pink. Discharge vitals discussed with SOCORRO Jackson. Ordered to give 1000 mg Tylenol and 75 mg Tamiflu before discharge. Okay to discharge after medications given. Pt verbalized understanding of discharge instructions, need for follow up and prescription usage. Vital Signs: 19:47 BP 100 / 61; Pulse 129; Resp 20; Temp 98.2(TE); Pulse Ox 100% on R/A; Weight 78.02 kg ak1 (R); Height 5 ft. 6 in. (167.64 cm) (R); Pain 2/10; 21:14 Pulse 122; Resp 18; Temp 100.5(O); Pulse Ox 99% ; tl2 19:47 Body Mass Index 27.76 (78.02 kg, 167.64 cm) ak1 ED Course: 19:24 Patient arrived in ED. am2 19:47 Triage completed. ak1 19:47 Arm band placed on Patient placed in waiting room. ak1 20:28 Manuel Noland PA is [facility]. jr8 20:28 Arik Burgess MD is Attending Physician. jr8 20:48 Patient has correct armband on for positive identification. Bed in low position. Call bb light in reach. Adult w/ patient. 21:15 No provider procedures requiring assistance completed. Patient did not have IV access tl2 during this emergency room visit. Administered Medications: 21:14 Drug: Tylenol 1000 mg Route: PO; tl2 21:16 Follow up: Response: No adverse reaction; Medication administered at discharge. tl2 21:14 Drug: Tamiflu 75 mg Route: PO; tl2 21:16 Follow up: Response: No adverse reaction; Medication administered at discharge. tl2 Outcome: 20:59 Discharge ordered by . jr8 21:15 Discharged to home ambulatory, with family. tl2 21:15 Condition: stable 21:15 Discharge instructions given to patient, family, Instructed on discharge instructions, follow up and referral plans. medication usage, Demonstrated understanding of instructions, follow-up care, medications, Prescriptions given X 1. 21:17 Patient left the ED. tl2 Signatures: Kylie Grande RN RN Manuel Luna PA PA jr8 Chelsea Hahn RN RN ak1 Sera Hinkle RN RN tl2 Jada Shah
[2018-10-23] MEDS ORDERED: OSELTAMIVIR 75 MG CAP ONE (21:21)
[2018-10-23] MEDS ORDERED: ACETAMINOPHEN 500 MG TAB ONE (21:21)
== END 2018-10-23 21:17 | disposition home or self-care (01) ==
LOC: ER 19:24
DX: B34.9 Viral infection, unspecified (principal); Z3A.31 31 weeks gestation of pregnancy; Z88.1 Allergy status to other antibiotic agents; Z88.5 Allergy status to narcotic agent; Z91.048 Other nonmedicinal substance allergy status
CPT/HCPCS: 87070; 87081; 87804; 99283

== ENCOUNTER 2019-03-13 07:33 | Emergency (ER) | payer MEDICAID, SELFPAY ==
--- OUTSIDE RECORDS SUMMARY | 2019-03-13 07:39 | XMS REPORT ---
:1995 [facility] Address [address] [place] [address] [address] [place] [address] Care Team Providers Name Role Phone Unavailable Unavailable Unavailable Problems This patient has no known problems. Allergies, Adverse Reactions, Alerts This patient has no known allergies or adverse reactions. Medications This patient has no known medications.
[2019-03-13 08:24] LABS: Absolute Lymphocytes (CBC) 1.7 K/uL (0.7-4.9); Basophils % 0.3 % (0-1.3); Hematocrit 33.6 % (36.0-45.0); Lymphocytes % 28.3 % (15.3-44.8); MPV 9.2 fL (7.6-11.3); RBC Red Blood Cell Count 4.74 M/uL (3.86-4.86)
[2019-03-13 08:38] LABS: BUN Blood Urea Nitrogen 7 mg/dL (7-18); Bicarbonate 24 mmol/L (21-32); Glucose Level 92 mg/dL (74-106); Potassium 3.6 mmol/L (3.5-5.1); Sodium Level 143 mmol/L (136-145)
--- NOTE | 2019-03-13 09:43 | RAD REPORT ---
EXAM DESCRIPTION: CT - Soft Tissue Neck Wo Contr - 03/13/2019 8:49 am CLINICAL HISTORY: Right tonsil swelling on exam, fever, sore throat TECHNIQUE: Axial 3 millimeter thick images of the neck soft tissues performed extending from skullba se to lung apex. No IV contrast administered. All CT scans are performed using dose optimization technique as appropriate and may include automated exposure control or mA/KV adjustment according to patient size. FINDINGS: Intracranial portion the examination is grossly normal. No globe or orbital content abnorm ality. Mastoid air cells and paranasal sinuses are clear. Parotid, submandibular and thyroid gland tissue show no suspicious findings. Adenoid hypertrophy is present at 15 mm, prominent for the patient's age. Left tonsil is within limit s of normal. Right tonsil is enlarged and more heterogeneous than the left tonsil. There is some hete rogeneity but no clearly defined tonsillar abscess. Tonsillar abscess assessment is limited in the ab sence of contrast. The adjacent parapharyngeal fat is within limits. No tongue base abnormality. Epig lottis and laryngeal structures are normal. No mass or suspicious lymphadenopathy in the neck soft tissues. IMPRESSION: Enlarged and slightly heterogeneous right tonsil. Appearances consistent with a tonsillitis. No gross evidence for a tonsillar abscess; however, absenc e of contrast limits this assessment. Adenoid hypertrophy.
[2019-03-13] MEDS ORDERED: PEN G BENZ LA 1.2MU/2ML SYRINGE IM ONE (10:27)
--- NOTE | 2019-03-13 11:04 | ER ---
Nurse's Notes [facility] Name: Beth Hernandez Age: 24 yrs Sex: Female : 1995 Arrival Date: 03/13/2019 Time: 07:37 Bed 13 Private MD: None, None Diagnosis: Streptococcal tonsillitis Presentation: 03/13 07:52 Presenting complaint: Patient states: Sore throat, cough and fever since . ph Transition of care: patient was not received from another setting of care. Onset of symptoms was March 13, 2019. Risk Assessment: Do you want to hurt yourself or someone else? Patient reports no desire to harm self or others. Initial Sepsis Screen: Does the patient meet any 2 criteria? No. Patient's initial sepsis screen is negative. Does the patient have a suspected source of infection? No. Patient's initial sepsis screen is negative. Care prior to arrival: None. 07:52 Method Of Arrival: Ambulatory ph 07:52 Acuity: MOLLY 4 ph Historical: - Allergies: 07:55 Hydrocodone-Acetaminophen; ph 07:55 Iodine; ph 07:55 Zithromax; ph - Home Meds: 07:55 Iron CR Oral [Active]; ph - PMHx: 07:55 None; ph - PSHx: 07:55 ; ph - Immunization history:: Adult Immunizations unknown. - Social history:: Smoking status: Patient/guardian denies using tobacco. - Ebola Screening: : No symptoms or risks identified at this time. Screenin:57 Abuse screen: Denies threats or abuse. Denies injuries from another. Nutritional ph screening: No deficits noted. Tuberculosis screening: No symptoms or risk factors identified. Fall Risk None identified. Assessment: 08:00 General: Appears in no apparent distress. comfortable, slender, well groomed, Behavior ph is calm, cooperative, appropriate for age, Reports fever for 2-3 days. Pain: Complains of pain in throat and ears. Neuro: Level of Consciousness is awake, alert, obeys commands, Oriented to person, place, time, situation. Cardiovascular: Capillary refill < 3 seconds in bilateral fingers Patient's skin is warm and dry. Respiratory: Reports cough that is Airway is patent Respiratory effort is even, unlabored, Respiratory pattern is regular, symmetrical, Breath sounds are clear bilaterally. GI: No signs and/or symptoms were reported involving the gastrointestinal system. Patient currently denies abdominal pain, diarrhea, nausea, vomiting. EENT: Throat is reddened has enlarged tonsils bilaterally Reports pain when swallowing. Derm: Skin is intact, Skin is pink, warm \\T\\ dry. Musculoskeletal: Circulation, motion, and sensation intact. Range of motion: intact in all extremities. 09:00 Reassessment: Patient appears in no apparent distress at this time. Patient and/or ph family updated on plan of care and expected duration. Pain level reassessed. Patient is alert, oriented x 3, equal unlabored respirations, skin warm/dry/pink. 10:15 Reassessment: Patient appears in no apparent distress at this time. Patient and/or ph family updated on plan of care and expected duration. Pain level reassessed. Patient is alert, oriented x 3, equal unlabored respirations, skin warm/dry/pink. 11:39 Reassessment: Patient appears in no apparent distress at this time. Patient and/or ph family updated on plan of care and expected duration. Pain level reassessed. Pt asleep w/ equal and unlabored respirations, awaiting transfer to [facility]. 12:00 Reassessment: Patient appears in no apparent distress at this time. Pt requesting to be ph d/c, states, " I really don't think I need to be transferred for this. Can I just go home w/ antibiotics?" ERP notified of pt request. Vital Signs: 07:53 BP 120 / 86; Pulse 108; Resp 18; Temp 99.1; Pulse Ox 100% on R/A; Weight 73.48 kg; ph Height 5 ft. 6 in. (167.64 cm); Pain 10/10; 11:38 BP 116 / 72; Pulse 91; Resp 16; Temp 98.9(O); Pulse Ox 99% on R/A; ph 07:53 Body Mass Index 26.15 (73.48 kg, 167.64 cm) ph ED Course: 07:37 Patient arrived in ED. dp 07:38 None, None is Private Physician. dp 07:39 Darryl Rich MD is Attending Physician. kdr 07:52 Lala Eastman RN is Primary Nurse. ph 07:53 Triage completed. ph 07:55 Arm band placed on Patient placed in an exam room. ph 08:52 Soft Tissue Neck Wo Contr In Process Unspecified. EDMS 08:57 Patient has correct armband on for positive identification. Call light in reach. Side ph rails up X 1. Door closed. Noise minimized. Warm blanket given. Head of bed elevated. 10:00 Inserted saline lock: 22 gauge in right antecubital area, using aseptic technique. ph 11:40 No provider procedures requiring assistance completed. ph 11:56 Kate Ray MD is Referral Physician. kdr Administered Medications: 11:09 Drug: Clindamycin 900 mg Route: IVPB; Infused Over: 30 mins; Site: right antecubital; aj 11:40 Follow up: Response: No adverse reaction; IV Status: Completed infusion ph 11:09 Drug: Decadron - Dexamethasone 10 mg Route: IVP; Site: right antecubital; aj 12:22 Follow up: Response: No adverse reaction ph 11:15 Not Given (Other Intervention Used): Bicillin L-A 1.2 million units IM once ph Outcome: 11:03 ER care complete, transfer ordered by . kdr 11:57 Discharge ordered by . kdr 12:23 Patient left the ED. ph Signatures: Dispatcher [employer] EDMS Jada Olivas RN RN aj Rittger, Kevin, MD MD kdr Lala Eastman RN RN ph Carlitos Davis
--- NOTE | 2019-03-13 11:04 | EDPHYS ---
Physician Documentation [facility] Name: Beth Hernandez Age: 24 yrs Sex: Female : 1995 Arrival Date: 03/13/2019 Time: 07:37 Bed 13 Private MD: None, None ED Physician Darryl Rich HPI: 03/13 08:07 This 24 yrs old Black Female presents to ER via Ambulatory with complaints of Sore kdr Throat, Cough, Ear Pain. 08:07 The patient presents with sore throat, dysphagia, of solids, of liquids, of both solids kdr and liquids. The patient describes throat pain as constant, raw, scratchy, the patient is unable to open their mouth due to pain. Onset: The symptoms/episode began/occurred gradually, last week. Severity of symptoms: At their worst the symptoms were mild, moderate, just prior to arrival, in the emergency department the symptoms are unchanged. Modifying factors: The symptoms are alleviated by nothing, the symptoms are aggravated by fluids, foods, swallowing, Patient's oral intake status: good. Associated signs and symptoms: Pertinent positives: chills, earache, fever, Sore throat. The patient has not experienced similar symptoms in the past. The patient has not recently seen a physician. Historical: - Allergies: 07:55 Hydrocodone-Acetaminophen; ph 07:55 Iodine; ph 07:55 Zithromax; ph - Home Meds: 07:55 Iron CR Oral [Active]; ph - PMHx: 07:55 None; ph - PSHx: 07:55 ; ph - Immunization history:: Adult Immunizations unknown. - Social history:: Smoking status: Patient/guardian denies using tobacco. - Ebola Screening: : No symptoms or risks identified at this time. ROS: 08:07 Constitutional: Negative for chills, and weight loss - she has had fever to 103 Eyes: kdr Negative for injury, pain, redness, and discharge, Neck: Negative for injury, pain, and swelling, Cardiovascular: Negative for chest pain, palpitations, and edema, Respiratory: Negative for shortness of breath, cough, wheezing, and pleuritic chest pain, Abdomen/GI: Negative for abdominal pain, nausea, vomiting, diarrhea, and constipation, Back: Negative for injury and pain, : Negative for injury, bleeding, discharge, and swelling, MS/Extremity: Negative for injury and deformity, Skin: Negative for injury, rash, and discoloration, Neuro: Negative for headache, weakness, numbness, tingling, and seizure activity. 08:07 ENT: Positive for ear pain, sore throat, Negative for drainage from ear(s), nasal discharge, sinus congestion, dental pain, difficulty handling secretions. Exam: 08:07 Constitutional: This is a well developed, well nourished patient who is awake, alert, kdr and in no acute distress. Head/Face: Normocephalic, atraumatic. Eyes: Pupils equal round and reactive to light, extra-ocular motions intact. Lids and lashes normal. Conjunctiva and sclera are non-icteric and not injected. Cornea within normal limits. Periorbital areas with no swelling, redness, or edema. Neck: Trachea midline, no thyromegaly or masses palpated, and no cervical lymphadenopathy. Supple, full range of motion without nuchal rigidity, or vertebral point tenderness. No Meningismus. Chest/axilla: Normal chest wall appearance and motion. Nontender with no deformity. No lesions are appreciated. Cardiovascular: Regular rate and rhythm with a normal S1 and S2. No gallops, murmurs, or rubs. Normal PMI, no JVD. No pulse deficits. Respiratory: Lungs have equal breath sounds bilaterally, clear to auscultation and percussion. No rales, rhonchi or wheezes noted. No increased work of breathing, no retractions or nasal flaring. Abdomen/GI: Soft, non-tender, with normal bowel sounds. No distension or tympany. No guarding or rebound. No evidence of tenderness throughout. Back: No spinal tenderness. No costovertebral tenderness. Full range of motion. Skin: Warm, dry with normal turgor. Normal color with no rashes, no lesions, and no evidence of cellulitis. MS/ Extremity: Pulses equal, no cyanosis. Neurovascular intact. Full, normal range of motion. Neuro: Awake and alert, GCS 15, oriented to person, place, time, and situation. Cranial nerves II-XII grossly intact. Motor strength 5/5 in all extremities. Sensory grossly intact. Cerebellar exam normal. Normal gait. Psych: Awake, alert, with orientation to person, place and time. Behavior, mood, and affect are within normal limits. 08:07 ENT: TM's: TM's largely obscured by cerumen. What can be seen appears normal, Mouth: Lips: normal, Oral mucosa: normal, Gums: normal with healthy appearance, drooling, is not appreciated, Mild trismus, Posterior pharynx: Airway: normal, Tonsils: bilaterally enlarged, May be slightly more enlarged on the right, Uvula: midline, Voice: is normal. Vital Signs: 07:53 BP 120 / 86; Pulse 108; Resp 18; Temp 99.1; Pulse Ox 100% on R/A; Weight 73.48 kg; ph Height 5 ft. 6 in. (167.64 cm); Pain 10/10; 11:38 BP 116 / 72; Pulse 91; Resp 16; Temp 98.9(O); Pulse Ox 99% on R/A; ph 07:53 Body Mass Index 26.15 (73.48 kg, 167.64 cm) ph MDM: 08:07 Data reviewed: vital signs, nurses notes, lab test result(s), radiologic studies. kdr Counseling: I had a detailed discussion with the patient and/or guardian regarding: the historical points, exam findings, and any diagnostic results supporting the discharge/admit diagnosis, lab results, radiology results, the need for outpatient follow up. 11:03 Patient medically screened. kdr 11:32 ED course: Attempted to contact ENT - left message for consult call. Did not receive a kdr call back so initiated transfer since the patient had trismus and was claiming difficulty with swallowing solids and fluids. D/w transfer center at [facility] - they will see in ED there. 11:53 ED course: The patient states that she is feeling better and does not want to be kdr transferred. She still appears to have mild trismus but her airway is intact and she believes that she will be able to swallow solids and fluids. I advised her to either return to the ED or follow-up with ENT if she worsens in any way.. 03/13 07:56 Order name: CBC with Diff; Complete Time: 11:26 kdr 03/13 07:56 Order name: Chem 7; Complete Time: 08:55 kdr 03/13 07:56 Order name: Strep; Complete Time: 08:55 kdr 03/13 08:37 Order name: Throat Culture EDWY 03/13 11:17 Order name: Manual Differential; Complete Time: 11:26 [facility] 03/13 08:49 Order name: Soft Tissue Neck Wo Contr; Complete Time: 10:01 EDWY Administered Medications: 11:09 Drug: Clindamycin 900 mg Route: IVPB; Infused Over: 30 mins; Site: right antecubital; aj 11:40 Follow up: Response: No adverse reaction; IV Status: Completed infusion ph 11:09 Drug: Decadron - Dexamethasone 10 mg Route: IVP; Site: right antecubital; aj 12:22 Follow up: Response: No adverse reaction ph 11:15 Not Given (Other Intervention Used): Bicillin L-A 1.2 million units IM once ph Disposition: 03/13/19 11:57 Discharged to Home. Impression: Streptococcal tonsillitis. - Condition is Stable. - Discharge Instructions: Pharyngitis, Lejw-qy-Dcup. - Prescriptions for Amoxicillin 500 mg Oral Capsule - take 1 capsule by ORAL route every 8 hours for 10 days; 30 tablet. Tylenol- Codeine #3 300-30 mg Oral Tablet - take 2 tablets by ORAL route every 6 hours As needed; 15 tablet. - Medication Reconciliation Form, Thank You Letter, Antibiotic Education, Prescription Opioid Use, Work release form form. - Follow up: Kate Ray MD; When: 2 - 3 days; Reason: If symptoms return, Further diagnostic work-up, Recheck today's complaints, Continuance of care, Re-evaluation by your physician. - Problem is new. - Symptoms have improved. Signatures: Dispatcher [employer] [facility] Jada Olivas RN RN Darryl Patel MD MD kdr Hall, Patricia RN RN ph Corrections: (The following items were deleted from the chart) 08:43 07:59 Soft Tissue Neck W/Contr+CT.RAD.BRZ ordered. [facility] 08:49 08:43 CT-SOFT TISSUE NECK W/O CONTR ordered. [facility] 11:56 11:03 03/13/2019 11:03 Transfer ordered to [facility]. Diagnosis is kdr Acute pharyngitis; Peritonsillar abscess. Reason for transfer: Higher level of care. Accepting physician is Accepting. Condition is Fair. Problem is new. Symptoms are unchanged. kdr 12:23 11:57 03/13/2019 11:57 Discharged to Home. Impression: Streptococcal tonsillitis. ph Condition is Stable. Forms are Medication Reconciliation Form, Thank You Letter, Antibiotic Education, Prescription Opioid Use. Follow up: Kate Ray; When: 2 - 3 days; Reason: If symptoms return, Further diagnostic work-up, Recheck today's complaints, Continuance of care, Re-evaluation by your physician. Problem is new. Symptoms have improved. kdr
[2019-03-13 11:14] LABS: Blood Morphology Comment NOT SEEN (NOT SEEN); Platelet Estimate ADEQ
[2019-03-13] MEDS ORDERED: CLINDAMYCIN 900MG/D5W 900 MG/50 ML IVPB IV ONE (11:23)
[2019-03-13] MEDS ORDERED: dexAMETHasone 10 MG/ML VIAL ONE (11:23)
== END 2019-03-13 12:23 | disposition home or self-care (01) ==
LOC: ER 07:33
DX: J03.00 Acute streptococcal tonsillitis, unspecified (principal); Z88.1 Allergy status to other antibiotic agents; Z88.5 Allergy status to narcotic agent; Z91.048 Other nonmedicinal substance allergy status
CPT/HCPCS: 36415; 70490; 80048; 85025; 87070; 87081; 96365; 96375; 99284; J0561; J1100

== ENCOUNTER 2021-08-25 19:08 | Emergency (ER) | payer SELFPAY ==
--- OUTSIDE RECORDS SUMMARY | 2021-08-25 19:27 | XMS REPORT | Continuity of Care Document ---
:1995 Author Organization [facility] t Address [address] [place] [address] Care Team Providers Name Role Phone Jordi SINGH Primary Care Physician Unavailable MONCHO MOSS Attending Clinician Unavailable Nurse, Pob Immunization Attending Clinician Unavailable Moncho Moss DO Attending Clinician Doctor Unassigned, Name Attending Clinician Unavailable Pcp, Does Not Have A Attending Clinician Tara Veronica Attending Clinician ANAM Attending Clinician Unavailable Payers Payer Name Policy Type Policy Number Effective Date Expiration Date S remi [facility] [id number] 2019 00:00:00 WOMEN Problems Condition Condition Condition Status Onset Resolution Last Treating Co mments Source Name Details Category Date Date Treatment Clinician Date 39 weeks 39 weeks Disease Active Unive rs gestation gestation 4-30 ity of of of 00:00: [place] [facility] Obesity Obesity Disease Active 2016-08 Univers (BMI (BMI 0-04 ity of 30-39.9) 30-39.9) 00:00: [address] Failed Failed Disease Active 2015-08 Univers induction induction 1-11 ity of of labor, of labor, 00:00[place] delivered delivered [facility] Liveborn Liveborn Disease Active 2015-08 Unive rs by by 1-11 ity of 00:00: [facility] s [address] [place] [address] Postmaturi Postmaturi Disease Active 2015-08 U nivers ty ty -10 ity of , , 00:00[place] 40-42 40-42 00 Medical weeks weeks Branch gestation gestation 16 weeks 16 weeks Disease Active Unive rs gestation gestation 6 ity of of of 00:00: [place] 00 [facility] Allergies, Adverse Reactions, Alerts Allergy Allergy Status Severity Reaction(s) Onset Inactive Treating Comm ents Source Name Type Date Date Clinician Hydrocod Propensi Active Rash 2016-08 Univer s one ty to 0-07 ity of adverse 00:00: [place] reaction 00 Medical s Branch HYDROCOD DRUG Active Rash 2016-08 Univers ONE INGREDI 0-07 ity of 00:00: [place] 00 Medical Branch Seafood/ Propensi Active Swelling 2015-08 Univ ers Fish ty to 08-26 ity of adverse 00:00: [place] reaction 00 [facility] Branch Azithrom Propensi Active Other - See 2015-08 Pt also Univers ycin ty to comments 08-26 had ity of adverse 00:00: tachycard [place] reaction 00 ia (into Medica l s to the Branch drug 130's) SEAFOOD/ Food Active Swelling 2015-08 Univer s FISH 08-26 ity of 00:00: [place] 00 [facility] Branch AZITHROM DRUG Active N/V 2015-08 Univers YCIN INGREDI 08-26 ity of 00:00: [place] 00 [facility] Social History Social Habit Start Date Stop Date Quantity Comments Source Exposure to Not sure [facility] SARS-CoV-2 [facility] (event) [place] Alcohol intake 2020-02-02 2020-02-02 Current University of 00:00:00 00:00:00 non-drinker of [facility] alcohol [place] (finding) Tobacco use and 2016-06-25 2016-06-25 Never used Universit y of exposure 00:00:00 00:00:00 [facility] [place] Sex Assigned At [birth year] Universit y of 00:00:00 00:00:00 [facility] [place] Smoking Status Start Date Stop Date Source Never smoker [facility] Medications Ordered Filled Start Stop Current Ordering Indication Dosage Frequency Signature Comments Components Source Medication Medication Date Date Medication? Clinician (SIG) Name Name phenazopyri 2020- No 200mg 200 mg, U nivers dine 6 06-20 Oral, ity of (PYRIDIUM) 05:15: 04:23 ONCE, 1 [place] tablet 200 00 :00 dose, Sat Medi juan carlos mg 02/03/20 at Branch 0015, Routine levoFLOXaci 2020-0 2019- No 750mg 750 mg, U nivers n 6-20 -20 Oral, ONCE ity of (LEVAQUIN) 05:15: 04:23 NOW, 1 [place] tablet 750 00 :00 dose, Sat Medi juan carlos mg 02/03/20 at Branch 0015, ZULEIMA
Re ason for Anti-Infec tive: Documented Infection< br>Documen kai Infection Site: Urine
D uration of Therapy: 7 days phenazopyri 2020-0 Yes [id number] 200mg Take 1 Univers dine 200 mg 6-19 tablet by ity of tablet 00:00: mouth 3 [place] 00 (three) Medical times Branch daily as needed for Pain. phenazopyri 2020-0 Yes [id number] 200mg Take 1 Univers dine 200 mg 6-19 tablet by ity of tablet 00:00: mouth 3 00 (three) Medical times Branch daily as needed for Pain. phenazopyri 2020-0 Yes [id number] 200mg Take 1 Univers dine 200 mg 6-19 tablet by ity of tablet 00:00: mouth 3 [place] 00 (three) Medical times Branch daily as needed for Pain. phenazopyri 2020-0 Yes [id number] 200mg Take 1 Univers dine 200 mg 6-19 tablet by ity of tablet 00:00: mouth 3 [place] 00 (three) Medical times Branch daily as needed for Pain. levoFLOXaci 2020-0 2020- No [id number] 750mg Take 1 Univers n 6-19 - tablet by ity of (LEVAQUIN) 00:00: 04:59 mouth [place] 750 mg 00 :00 every 24 Medical tablet (twenty-fo Branch ur) hours for 7 days. estradiol 2018-08 Yes Take 1 tab Univers mg tablet 0-23 daily ity of 00:00: until [place] 00 bleeding Medical stops; Branch then take 1 tab daily for 7 more days before discontinu ing estradiol 2018-08 Yes Take 1 tab Univers mg tablet 0-23 daily ity of 00:00: until [place] 00 bleeding Medical stops; Branch then take 1 tab daily for 7 more days before discontinu ing estradiol 2018-08 Yes Take 1 tab Univers mg tablet 0-23 daily ity of 00:00: until [place] 00 bleeding Medical stops; Branch then take 1 tab daily for 7 more days before discontinu ing estradiol 1 2018-08 Yes Take 1 tab Univers mg tablet 0-23 daily ity of 00:00: until [place] 00 bleeding Medical stops; Branch then take 1 tab daily for 7 more days before discontinu ing Yes 1{tbl} Take 1 Unive rs vit 6-17 tablet by ity of calc,iron,f 14:14: mouth. [facility] Medical ( Branch VITAMIN ORAL) Yes 1{tbl} Take 1 Unive rs vit 6-17 tablet by ity of calc,iron,f 14:14: [facility]. [facility] ( Branch VITAMIN ORAL) Yes 1{tbl} Take 1 Unive rs vit 6-17 tablet by ity of calc,iron,f 14:14: mouth. [facility] ( Branch VITAMIN ORAL) Yes 1{tbl} Take 1 Unive rs vit 6-17 tablet by ity of calc,iron,f 09:14: mouth. [facility] ( Branch VITAMIN ORAL) ALBUTEROL Yes Inhale. Unive rs INHALE 5-02 Indication ity of 20:22: s: PRN [place] 03 asthma. pt Medical last took Branch x2 yrs ago ALBUTEROL Yes Inhale. Unive rs INHALE 5-02 Indication ity of 20:22: s: PRN [place] 03 asthma. pt Medical last took Branch x2 yrs ago ALBUTEROL 2019-0 Yes Inhale. Unive rs INHALE 5-02 Indication ity of 20:22: s: PRN [place] 03 asthma. pt Medical last took Branch x2 yrs ago ALBUTEROL 2019-0 Yes Inhale. Unive rs INHALE 5-02 Indication ity of 15:22: s: PRN [place] 03 asthma. pt Medical last took Branch x2 yrs ago 2018- Yes [id number] 1{tbl} Take 1 Univers vitamin 5-02 tablet by ity of w/FA tablet 00:00: mouth [place] 00 daily. Medical Branch ferrous 2019- Yes [id number] 325mg Take 1 Un jam sulfate 325 5-02 tablet by ity of mg (65 mg 00:00: mouth 2 [place] iron) 00 (two) Medical tablet times Branch daily. 2019-0 Yes [id number] 1{tbl} Take 1 Univers vitamin 5-02 tablet by ity of w/FA tablet 00:00: mouth [place] 00 daily. Medical Branch ferrous 2019-0 Yes [id number] 325mg Take 1 Un jam sulfate 325 5-02 tablet by ity of mg (65 mg 00:00: mouth 2 [place] iron) 00 (two) Medical tablet times Branch daily. 2018-0 Yes [id number] 1{tbl} Take 1 Univers vitamin 5-02 tablet by ity of w/FA tablet 00:00: mouth [place] 00 daily. Medical Branch ferrous 2018-0 Yes [id number] 325mg Take 1 Un jam sulfate 325 5-02 tablet by ity of mg (65 mg 00:00: mouth 2 [place] iron) 00 (two) Medical tablet times Branch daily. 2018-0 Yes [id number] 1{tbl} Take 1 Univers vitamin 5-02 tablet by ity of w/FA tablet 00:00: mouth [place] 00 daily. Medical Branch ferrous 2018- Yes [id number] 325mg Take 1 Un jam sulfate 325 5-02 tablet by ity of mg (65 mg 00:00: mouth 2 [place] iron) 00 (two) Medical tablet times Branch daily. diphenhydrA 2016-08 Yes 25mg Take 1 Univ ers MINE 0-07 tablet by ity of (BENADRYL 00:00: mouth [place] ALLERGY) 25 00 every 4 Medic al mg tablet (four) Branch hours as needed for Allergies. diphenhydrA 2016-08 Yes 25mg Take 1 Univ ers MINE 0-07 tablet by ity of (BENADRYL 00:00: mouth [place] ALLERGY) 25 00 every 4 Medic al mg tablet (four) Branch hours as needed for Allergies. diphenhydrA 2016-08 Yes 25mg Take 1 Univ ers MINE 0-07 tablet by ity of (BENADRYL 00:00: mouth [place] ALLERGY) 25 00 every 4 Medic al mg tablet (four) Branch hours as needed for Allergies. diphenhydrA 2016-08 Yes 25mg Take 1 Univ ers MINE 0-07 tablet by ity of (BENADRYL 00:00: mouth [place] ALLERGY) 25 00 every 4 Medic al mg tablet (four) Branch hours as needed for Allergies. Immunizations Ordered Filled Immunization Date Status Comments Sour e Immunization Name Name SARS-COV-2 COVID-19 2021-07-17 Completed Unive rsity of PFIZER VACCINE 00:00:00 [facility] Vital Signs Vital Name Observation Time Observation Value Comments Source Systolic blood 2020-02-03 03:13:00 112 mm[Hg] Univer sity of pressure [facility] [place] Diastolic blood 2020-02-03 03:13:00 75 mm[Hg] Unive rsity of pressure [facility] [place] Heart rate 2020-02-03 03:13:00 86 /min [facility] Body temperature 2020-02-03 03:13:00 37.17 Magaly [facility] ers[facility]ly [facility] Respiratory rate 2020-02-03 03:13:00 16 /min [facility] Body height 2020-02-03 03:13:00 167.6 cm [facility] Body weight 2020-02-03 03:13:00 77.111 kg [facility] BMI 2020-02-03 03:13:00 27.44 kg/m2 [facility] Oxygen saturation in 2020-02-03 03:13:00 99 /min [facility] Arterial blood by [facility] Pulse oximetry Branch Procedures Procedure Date / Time Performed Performing Clinician Gabi e SARS-COV-2 COVID-19 2021-07-17 22:01:41 Doctor Unassigned, No [facility] [place] VACCINE,0.3ML,IM Name [facility] (PFIZER) URINALYSIS 2020-02-03 03:19:00 Shantelle Portillo [place] o f [facility] [place] POCT TEST 2020-02-03 03:19:00 Shantelle Portillo [facility] NOTICE OF PRIVACY 2020-02-03 03:07:03 Doctor Unassigned, No Univ [facility] [place] PRACTICES [facility] CONSENT/REFUSAL FOR 2020-02-03 03:06:50 Doctor Unassigned, No [facility] [place] DIAGNOSIS AND [facility] Medical Branch TREATMENT Encounters Start End Encounter Admission Attending Care Care Encounter Source Date/Time Date/Time Type Type Clinicians Facility Department ID 2021-06-13 Emergency [facility] [id number] Univers 01:57:06 ity of [facility] [place] 2021-08-07 2021-08-07 Outpatient Rogelio MOSS [facility] [id number] Univers 08:30:00 08:30:00 [facility] 2021-07-17 2021-07-17 Imm/Inj Nurse, Adc Pob Immunization [facility] [id number] Univers 15:41:28 15:41:38 Visit Kvng Moss 350.1.13 .10 ity of [id number] [place] [address] [facility] [id number] Mi dical [address] 2021-07-17 2021-07-17 Outpatient Rogelio MOSS [facility] [id number] Univers 15:30:00 15:30:00 [facility] 2021-07-15 2021-07-15 Outpatient Rogelio MOSS [facility] [id number] Univers 14:00:00 14:00:00 [facility] 2020-09-10 2020-09-10 Letter Doctor ANASTASIA [id number] Univers 00:00:00 00:00:00 (Out) Unassigned, NARINDER 350.1.13.10 ity of [place] [facility] 4.2.7.2.686 [place] as [phone] [facility] 044 Branch 2020-09-03 2020-09-03 Telephone Pcp, CRUZIT [id number] Univers 00:00:00 00:00:00 Patient Y HEALTH 350.1.13.10 i ty of Does Not [facility] [id number] [place] as Have A [phone] [facility] 113 Branch 2020-02-02 2020-02-02 Emergency Shantelle Portillo [facility] [id number] Univers 22:16:09 23:25:00 Tara Tyson 350.1.13.10 i ty [place] [phone] [facility] 084 Branch 2019-10-17 2019-10-17 Outpatient Rogelio MENDIETA [facility] [id number] Univers 15:00:00 15:00:00 GUERDA adeline [facility] Results Test Description Test Time Test Comments Results Result Comments Source URINALYSIS 2020-02-03 03:55:00 Test Item Value Reference Range Interpretation Comme nts APPEARANCE (test code = Cloudy Clear A 1864922299) COLOR (test code = 6452515100) Yellow Yellow PH (test code = 1964678352) 4.8-8.0 SP GRAVITY (test code = 1.003-1.030 8779546676) GLU U QUAL (test code = Normal Normal 0518960013) BLOOD (test code = 5475843388) 3+ Negative A KETONES (test code = 2255441828) Negative Negative PROTEIN (test code = 2887-8) 100 mg/dL Negative A UROBILIN (test code = Normal Normal 9948027551) BILIRUBIN (test code = Negative Negative 2938089896) NITRITE (test code = 0816721710) Negative Negative LEUK DIMPLE (test code = 500/uL Negative A 9008265351) RBC/HPF (test code = 9841252205) See_Comment H [Automated message] The system which [employer] nerated this result transmit kai reference range: 0 - 3 HP F. The reference range was not used to interpret th is result as normal/abnormal . WBC/HPF (test code = 8909250019) >182 See_Comment H [Automated message] The system which [employer] nerated this result transmit kai reference range: 0 - 5 HP F. The reference range was not used to interpret th is result as normal/abnormal . BACTERIA (test code = Many Negative A 5551656536) MUCOUS (test code = 8011062561) Moderate Negative LPF A WBC CLUMPS (test code = See_Comment H [Au tomated message] The 0977634291) system which [employer] nerated this result transmit kai reference range: <=1 HPF. The reference range was not used to interpret th is result as normal/abnormal . HYAL CAST (test code = See_Comment H [Aut omated message] The [id number]) system which [employer] nerated this result transmit kai reference range: <=2 LPF. The reference range was not used to interpret th is result as normal/abnormal . Lab Interpretation (test code = Abnormal 36215-6) [id number] Test Item Value Reference Range Interpretation Comments POCT PREG (test code = 1605) Negative On board controls acceptable with Present C Line (test code = 3574) POCT PREG LOT # (test code = 3575) [id number] POCT PREG TEST DATE (test 05/15/2021 code = 3576) Lab Interpretation (test code = Normal 23897-9) [facility]
[2021-08-25] MEDS ORDERED: IBUPROFEN 200 MG TAB PO ONE (19:56)
[2021-08-25 21:42] LABS: SARS-COV-2 RT PCR POSITIVE (NEGATIVE)
--- NOTE | 2021-08-25 21:43 | ER ---
Nurse's Notes [facility] Name: Beth Hernandez Age: 26 yrs Sex: Female : 1995 Arrival Date: 08/25/2021 Time: 19:17 Bed Waiting Private MD: Diagnosis: Coronavirus infection, unspecified Presentation: 08/25 19:49 Chief complaint: Patient states: she is having body aches, chills, headache, cough, bb sore throat starting today. Coronavirus screen: chills, cough unrelated to allergies, muscle pain, sore throat. Ebola Screen: No symptoms or risks identified at this time. Initial Sepsis Screen: Does the patient meet any 2 criteria? No. Patient's initial sepsis screen is negative. Does the patient have a suspected source of infection? No. Patient's initial sepsis screen is negative. Risk Assessment: Do you want to hurt yourself or someone else? Patient reports no desire to harm self or others. Onset of symptoms was August 25, 2021. 19:49 Method Of Arrival: Ambulatory 19:49 Acuity: MOLLY 4 bb Triage Assessment: 19:52 General: Appears in no apparent distress. uncomfortable, Behavior is calm, cooperative. bb Pain: Complains of pain in head Pain currently is 10 out of 10 on a pain scale. Pain began today. Neuro: Level of Consciousness is awake, alert, obeys commands, Oriented to person, place, time, situation. Cardiovascular: Capillary refill < 3 seconds Patient's skin is warm and dry. Respiratory: Respiratory effort is even, unlabored. GI: No signs and/or symptoms were reported involving the gastrointestinal system. Derm: Skin is pink, warm \T\ dry. Musculoskeletal: Circulation, motion, and sensation intact. 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 - Social history:: Smoking status: Patient denies any tobacco usage or history of. Vital Signs: 19:49 BP 129 / 75; Pulse 115; Resp 18 S; Temp 100.3(TE); Pulse Ox 99% on R/A; Weight 83.91 kg bb (R); Height 5 ft. 6 in. (167.64 cm) (R); Pain 10/10; 19:49 Body Mass Index 29.86 (83.91 kg, 167.64 cm) bb Delbert Coma Score: 19:58 Eye Response: spontaneous(4). Verbal Response: oriented(5). Motor Response: obeys kb commands(6). Total: 15. ED Course: 19:17 Patient arrived in ED. kc5 19:47 Olive Degroot [facility]C [facility] kb 19:47 Akhil Ayala MD is Attending Physician. kb 19:52 Triage completed. bb 19:52 Arm band placed on Patient placed in waiting room, Patient notified of wait time. bb Antipyretics given from triage as ordered by an ER provider. covid swab sent. Administered Medications: 19:54 Drug: Motrin (ibuprofen) 600 mg Route: PO; bb Outcome: 21:43 Discharge ordered by MD. kb 21:51 Patient left the ED. Signatures: Olive Degroot FNP-C FNP-Ckb Ballard, Brenda, RN RN Tesha Womack [id number] Maria Ines Oh, RN RN kimi
--- NOTE | 2021-08-25 21:43 | EDPHYS ---
Physician Documentation [facility] Name: Beth Hernandez Age: 26 yrs Sex: Female : 1995 Arrival Date: 08/25/2021 Time: 19:17 Bed Waiting Private MD: ED Physician Akhil Ayala HPI: 08/25 19:59 This 26 yrs old Black Female presents to ER via Ambulatory with complaints of Headache, kb Cough, Pain All Over. 19:59 The patient or guardian reports cough, that is intermittent, described as mild, flu kb symptoms, low-grade fever, myalgias. Onset: The symptoms/episode began/occurred today. Severity of symptoms: At their worst the symptoms were moderate, in the emergency department the symptoms are unchanged. Modifying factors: The symptoms are alleviated by nothing, the symptoms are aggravated by nothing. Associated signs and symptoms: Pertinent positives: fever, rhinorrhea, sore throat, Pertinent negatives: chest pain, diarrhea, ear ache, nausea, vomiting. The patient has not experienced similar symptoms in the past. The patient has not recently seen a physician. 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 - Social history:: Smoking status: Patient denies any tobacco usage or history of. ROS: 19:59 Abdomen/GI: Negative for abdominal pain, nausea, vomiting, diarrhea, and constipation. kb 19:59 Constitutional: Positive for body aches, chills, fatigue, fever, malaise. 19:59 ENT: Positive for rhinorrhea, sinus congestion. 19:59 Respiratory: Positive for cough, Negative for dyspnea on exertion, hemoptysis, orthopnea, pleurisy, shortness of breath, sputum production, wheezing. 19:59 Neuro: Positive for headache. 19:59 All other systems are negative. Exam: 19:59 Constitutional: This is a well developed, well nourished patient who is awake, alert, kb and in no acute distress. Head/Face: Normocephalic, atraumatic. ENT: Moist Mucous membranes Cardiovascular: Regular rate and rhythm with a normal S1 and S2. No gallops, murmurs, or rubs. No pulse deficits. Respiratory: Respirations even and unlabored. No increased work of breathing. Talking in full sentences Skin: Warm, dry with normal turgor. Normal color. MS/ Extremity: Pulses equal, no cyanosis. Neurovascular intact. Full, normal range of motion. Neuro: Awake and alert, GCS 15, oriented to person, place, time, and situation. Moves all extremities. Normal gait. Psych: Awake, alert, with orientation to person, place and time. Behavior, mood, and affect are within normal limits. Vital Signs: 19:49 BP 129 / 75; Pulse 115; Resp 18 S; Temp 100.3(TE); Pulse Ox 99% on R/A; Weight 83.91 kg bb (R); Height 5 ft. 6 in. (167.64 cm) (R); Pain 10/10; 19:49 Body Mass Index 29.86 (83.91 kg, 167.64 cm) bb Delbert Coma Score: 19:58 Eye Response: spontaneous(4). Verbal Response: oriented(5). Motor Response: obeys kb commands(6). Total: 15. MDM: 19:47 Patient medically screened. kb 19:58 Data reviewed: vital signs, nurses notes. Data interpreted: Pulse oximetry: on room air kb is 99 %. Interpretation: normal. 21:42 Counseling: I had a detailed discussion with the patient and/or guardian regarding: the kb historical points, exam findings, and any diagnostic results supporting the discharge/admit diagnosis, lab results, the need for outpatient follow up, a family practitioner, to return to the emergency department if symptoms worsen or persist or if there are any questions or concerns that arise at home. 08/25 19:48 Order name: COVID-19/FLU A+B (Document "Date of Onset" if Symptomatic) kb 08/25 19:48 Order name: COVID-19/FLU A+B; Complete Time: 21:43 EDMS Administered Medications: 19:54 Drug: Motrin (ibuprofen) 600 mg Route: PO; bb Disposition: 08/26 07:08 Co-signature as Attending Physician, Akhil Ayala MD I agree with the assessment and rn plan of care. Attestation: The patient's history, exam findings, diagnostics, and a summary of any interventions or procedures was reviewed in detail with Olive SMITH. Disposition Summary: 08/25/21 21:43 Discharge Ordered Location: Home kb Condition: Stable kb Diagnosis - Coronavirus infection, unspecified kb Followup: kb - With: Emergency Department - When: As needed - Reason: Worsening of condition Followup: kb - With: Private Physician - When: 2 - 3 days - Reason: Recheck today's complaints, Continuance of care, Re-evaluation by your physician Discharge Instructions: - Discharge Summary Sheet kb - Viral Respiratory Infection, [id number] kb - COVID-19 kb Forms: - Medication Reconciliation Form kb - Thank You Letter kb - Antibiotic Education kb - Prescription Opioid Use kb Signatures: Dispatcher [employer] EDMS Olive Degroot, LUIS SERRANO-Kylie Johnston, RN RN Akhil Ball MD MD rn
[2021-08-25 22:15] VITALS: BP 129/75; TEMP 100.3; O2SAT 99
== END 2021-08-25 21:51 | disposition home or self-care (01) ==
LOC: ER 19:08
DX: U07.1 COVID-19 (principal)
CPT/HCPCS: 0240U; 99282